=== PATIENT | female | born 1965 | race Caucasian/White ===

== ENCOUNTER 2024-10-20 01:15 | Day surgery (SDC) | payer OTHER, SELFPAY ==
[2024-10-06 15:04] VITALS: BMI 25.7
--- OUTSIDE RECORDS SUMMARY | 2024-10-20 01:17 | XMS_ITS | Clinical Summary ---
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 Gender Identity Not on file Sexual Orientation Not on file Plan of Treatment Health Maintenance Due Date Last Done Comments Hepatitis C Virus (HCV) Screening 1965 TdaP Immunization 1965 Pap Smear 1985 Cervical Cancer Screening (CCS) 1994 HPV/Cotest 1994 Cologuard 2009 Colonoscopy 2009 Colorectal Cancer Screening 2009 Immunochemical Fecal Occult Blood 2009 Pneumococcal Immunization (5 0+ years) (1 of 1 - PCV) 2014 Zoster Immunization (1 of 2) 2014 SARS-COV-2 Immunization (2 - season) 2023 01/10/2021 Influenza Immunization (#1) 2024 Respiratory Syncytial Virus (RSV) Immunization (Adult) (1 - 1-dose 75+ series) 08/16/2039 Hepatitis B Immunization Aged Out No longer eligible based on patient's age to complete this topic Human Papillomavirus (HPV) Immunization Aged Out No longer eligible b ased on patient's age to complete this topic Meningococcal Immunization (ACWY) Aged Out No longer eligible based on patient's age to complete this topic Rotavirus Immunization Aged Out No lo nger eligible based on patient's age to complete this topic
[2024-10-20 06:38] VITALS: BP 129/67; PULSE 70; RESP 16; TEMP 36.6; O2SAT 100; BMI 22.5
[2024-10-20] MEDS: LACTATED RINGERS 1,000 ML 150 ML IV CONT (07:04)
--- NOTE | 2024-10-20 08:07 | WPDANESEPPF ---
Anes - Initial Pre Proc Eval Procedure: Operation Date: 10/20/24 08:00 Proposed Procedures p Screening Colonoscopy - Edwin Frederick MD Date/Time: 10/20/24 08:07 Surgeon: Edwin Frederick MD Pre Op Diagnosis: Personal history of colon polyps, unspecified Patient Data Age: 59 Gender: F Height: 1.65 m Weight: 61.4 kg Last Vital Signs Temp 98 F 10/20/24 06:38 Pulse 70 10/20/24 06:38 Resp 16 10/20/24 06:38 BP 129/67 10/20/24 06:38 Pulse Ox 100 10/20/24 06:38 O2 Del Method Room Air 10/20/24 06:38 Allergies Allergy/AdvReac Type Severity Reaction Status Date / Time No Known Allergies Allergy Mild Verified 10/20/24 06:45 Home Medications ?Medication ?Instructions ?Recorded ?Confirmed ?Type atorvastatin 20 mg tablet (Lipitor) 20 mg PO DAILY 10/06/24 10/20/24 History calcium citrate 200 mg PO DAILY 10/06/24 10/20/24 History cetirizine 10 mg tablet (24Hour 10 mg PO DAILY PRN allergies 10/06/24 10/06/24 History Allergy) magnesium 200 mg tablet 200 mg PO DAILY 10/06/24 10/20/24 History multivitamin (Daily Multi-Vitamin 1 tablet PO DAILY 10/06/24 10/20/24 History tablet) Patient hx anesthesia problems: none Family hx anesthesia problems: none Results Review: All pre-operative results and documents have been reviewed as part of the pre-operative evaluation. [facility] Social History Social History (System 04/12/21 @ 12:00 by Elida Landrum) Smoking packs per day: 2 Smoking cigarettes per day: 40.0 Years smoked: 45 Smoking pack-years: 90.00 Smoking status: Current every day smoker Tobacco type: cigarettes Alcohol intake: current Alcohol use details: socially Substance use: current Substance use type: marijuana Living arrangements: with family Spiritual care concerns: No Anes - Eval Final PreProcedure Day of Procedure 10/20/24 08:07 Patient weight: normal Heart: regular rate and rhythm Lungs: clear to auscultation Airway: Mallampati scale class II Neurological: alert and oriented Last oral intake: >/= 8 hours ASA classification: II Emergent: no Anesthetic plan: proceed Anesthesia type and monitoring: general GIVS and standard monitoring Results Review: All pre-operative results and documents have been reviewed as part of the pre-operative evaluation. Informed Consent: The patient's anesthetic plan and its attendant risks and benefits were discussed with the patient/family/POA. Questions were solicited and answers provided to the satisfaction of the patient/family/POA.
--- NOTE | 2024-10-20 08:13 | PM.HPGS ---
History of Present Illness History of Present Illness Consent: Risks, benefits, and alternatives have been discussed and questions answered. Patient agrees to proceed with procedure. Chief complaint: Personal history of colon polyps, unspecified Narrative: Fernanda Piña is a 59 year old female with colon polyp 5 years ago Review of Systems Review of Systems: All systems reviewed & are unremarkable except as noted in HPI and below PMFSH Past Medical History Medical History (Updated 10/20/24 @ 08:13 by Edwin Frederick MD) Colon polyp Social History Social History (System 04/12/21 @ 12:00 by Elida Landrum) Smoking packs per day: 2 Smoking cigarettes per day: 40.0 Years smoked: 45 Smoking pack-years: 90.00 Smoking status: Current every day smoker Tobacco type: cigarettes Alcohol intake: current Alcohol use details: socially Substance use: current Substance use type: marijuana Living arrangements: with family Spiritual care concerns: No Meds Home Medications and Allergies Home Medications ?Medication ?Instructions ?Recorded ?Confirmed ?Type atorvastatin 20 mg tablet (Lipitor) 20 mg PO DAILY 10/06/24 10/20/24 History calcium citrate 200 mg PO DAILY 10/06/24 10/20/24 History cetirizine 10 mg tablet (24Hour 10 mg PO DAILY PRN allergies 10/06/24 10/06/24 History Allergy) magnesium 200 mg tablet 200 mg PO DAILY 10/06/24 10/20/24 History multivitamin (Daily Multi-Vitamin 1 tablet PO DAILY 10/06/24 10/20/24 History tablet) Allergies Allergy/AdvReac Type Severity Reaction Status Date / Time No Known Allergies Allergy Mild Verified 10/20/24 06:45 Vital Signs Vital Signs - 24 hr 10/20/24 06:38 Temperature 98 F Pulse Rate 70 Respiratory Rate 16 Blood Pressure 129/67 Pulse Oximetry 100 Oxygen Delivery Room Air Exam Const: General: comfortable and no acute distress HENMT: Face/Nose/Sinus: Normal nares present Eyes: General: appearance normal, both eyes and all related structures Neck: Neck: no JVD Resp: Auscultation: clear to auscultation bilaterally Cardio: Rate: regular rate Rhythm: regular rhythm GI: Inspection: non-distended GI Palp: Yes Soft to palpation Skin: General skin exam: normal color Neuro: Speech: normal speech Extrem: General: normal to inspection Psych: Mental Status: mental status grossly normal Assessment and Plan Assessment and plan (1) Colon polyp: Code(s): K63.5 - Polyp of colon Status: Acute Assessment and Plan: colonoscopy
--- NOTE | 2024-10-20 08:30 | S_PTH ---
PATIENT: Fernanda Piña LOC: [facility]#:[id number] AGE/SX: 59/F ROOM: RE10/20/[address]: Edwin Frederick MD : 1965 BED: DIS: 10/20/2024 SPEC #: [id number] RECD: 10/20/24 09:26 STATUS: SAAD RECorine #: [id number] ROSELYN: 10/20/24 08:[address]: Edwin Frederick DEPT: [facility] RECD BY: Marisela Mejia ENTERED: 10/20/24 09:27 SP TYPE: Surgical OTHR DR: Chilo Brizuela, Tissues: A - Colon Polypectomy Procedures: Hematoxylin and Eosin Stain Gross and Microscopic Level 4
[2024-10-20 08:34] VITALS: BP 129/77; PULSE 57; RESP 14; O2SAT 100
[2024-10-20 08:44] VITALS: BP 126/75; PULSE 61; RESP 18; O2SAT 100
[2024-10-20 08:54] VITALS: BP 141/62; PULSE 60; RESP 18; O2SAT 99
== END 2024-10-20 09:06 | disposition home or self-care (01) ==
PROVIDERS: PCP Internal Medicine; Referring Provider Internal Medicine; Visit Provider Internal Medicine Gastroenterology
PROC: 0DJD8ZZ Inspection of Lower Intestinal Tract, Via Natural or Artificial Opening Endoscopic (ICD-10-PCS; CPT 45378; principal; 2024-10-20 08:00)
DX: Z12.11 Encounter for screening for malignant neoplasm of colon (principal); D12.3 Benign neoplasm of transverse colon; F17.210 Nicotine dependence, cigarettes, uncomplicated; F12.90 Cannabis use, unspecified, uncomplicated
CPT/HCPCS: 45385; 88305; J2003; J2704; J7120

== ENCOUNTER 2024-12-28 15:33 | Outpatient (CLI) | payer OTHER, SELFPAY ==
--- NOTE | ~2024-12-28 | MM_ITS ---
EXAMINATION: MM screening joanne BI w ron HISTORY: Screening TECHNIQUE: Craniocaudal and mediolateral oblique 3-D tomosynthesis images were obtained and synthetic 2-D images were generated. CAD analysis was submitted and interpreted. COMPARISON: No prior mammogram is available for comparison at this institution. BREAST PARENCHYMAL COMPOSITION: There are scattered areas of fibroglandular density. FINDINGS: There is no evidence of suspicious mass, calcification, or architectural distortion to suggest malignancy in either breast. There has been no suspicious interval change. IMPRESSION: 1. No mammographic evidence of malignancy. 2. Recommend routine screening mammography in one year. BI-RADS Category 1: Negative Reviewed, dictated and finalized at location B. 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
--- OUTSIDE RECORDS SUMMARY | 2024-12-28 15:35 | XMS_ITS | Clinical Summary ---
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
== END 2024-12-28 15:34 | disposition home or self-care (01) ==
PROVIDERS: PCP Internal Medicine; Visit Provider Internal Medicine
DX: Z12.31 Encounter for screening mammogram for malignant neoplasm of breast (principal)
CPT/HCPCS: 77063; 77067